=== PATIENT | female | born 1990 | race Caucasian/White ===

== ENCOUNTER 2022-06-08 18:19 | Emergency (ER) | payer MEDICAID ==
[~2022-06-08] VITALS: Ht 170.2 cm; Wt 93.4 kg
--- NOTE | 2022-06-08 19:00 | NUR ---
[id number], dizziness and headache x 2 hours s/p hiking, bg 134 [employer]. , pt in bed 11, no cp/sob. vss. pending er provider todd
[2022-06-08] MEDS ORDERED: ONDANSETRON HCL/PF 4 MG/2 ML VIAL IVP ONE (19:30)
[2022-06-08] MEDS ORDERED: SUMATRIPTAN SUCCINATE 6 MG/0.5 ML VIAL SQ ONE ×2 (19:30→19:39)
[2022-06-08] MEDS ORDERED: IV NS 0.9% 1,000 ML BAG IV ONE (19:30)
[2022-06-08] MEDS ORDERED: diphenhydrAMINE HCL 50 MG/ML VIAL IV ONE (19:30)
[2022-06-08] MEDS ORDERED: diphenhydrAMINE HCL 50 MG/ML VIAL ONE (19:39)
[2022-06-08] MEDS ORDERED: ONDANSETRON HCL/PF 4 MG/2 ML VIAL ONE (19:39)
[2022-06-08 19:55] LABS: BASOPHILS % (AUTO) 0.2 % (0.0-2.0); EOSINOPHILS % (AUTO) 0.3 % (0.0-6.0); HEMATOCRIT 42 % (33-45); HEMOGLOBIN 14.2 g/dL (11.5-14.8); LYMPHOCYTES # (AUTO) 0.8 K/uL (0.8-4.8); LYMPHOCYTES % (AUTO) 8.9 % (20.0-44.0); MEAN CORPUSCULAR HGB CONC 34 g/dl (31.0-36.0); MEAN CORPUSCULAR VOLUME 86 fL (82-100); MONOCYTES # (AUTO) 0.6 K/uL (0.1-1.30); MONOCYTES % (AUTO) 6.6 % (2.0-12.0); NEUTROPHILS # (AUTO) 7.7 K/uL (1.8-8.9); PLATELET COUNT (AUTO) 297 K/uL (150-450); RED BLOOD CELL COUNT(AUTO) 4.92 MIL/uL (4.0-5.2); WHITE BLOOD COUNT (AUTO) 9.2 K/uL (4.3-11.0)
[2022-06-08 20:28] LABS: CALCIUM, SERUM 9.4 mg/dL (8.5-10.1); CREATININE 0.9 mg/dL (0.6-1.3); POTASSIUM 3.9 mmol/L (3.5-5.1)
[2022-06-08 20:31] LABS: ALBUMIN 4.4 g/dL (3.4-5.0); BILIRUBIN,DIRECT 0.2 mg/dL (0.0-0.2); BILIRUBIN,TOTAL 0.5 mg/dL (0.2-1.0); TOTAL PROTEIN, SERUM 7.9 g/dL (6.4-8.2)
[2022-06-08] MEDS ORDERED: SUMA50TA PO (20:59)
--- NOTE | 2022-06-08 21:07 | NUR ---
Patient discharged to home in stable condition. Written and verbal after care instructions given. Patient verbalizes understanding of instruction. IV removed. Catheter intact and site benign. Pressure and 4x4 applied to site. No bleeding noted.
[2022-06-08 21:22] VITALS: BP 127/80
== END 2022-06-08 21:23 | disposition home or self-care (01) ==
LOC: ER 18:21
DX: G43.909 Migraine, unspecified, not intractable, without status migrainosus (principal)
CPT/HCPCS: 99285; 96374; 70450; 96361; 96375; 96372; 85025; 80048; 80076; 84703; 85652; 36415; J1200; J3030; J2405

== ENCOUNTER 2023-03-27 12:35 | Emergency (ER) | payer MEDICAID ==
[~2023-03-27] VITALS: Ht 167.6 cm; Wt 90.7 kg
[~2023-03-27 12:35] MED LIST: SUMA50TA PO
[2023-03-27] MEDS ORDERED: LIDOCAINE 1% INJ 50 ML MDV IJ ONE (13:18)
[2023-03-27] MEDS ORDERED: TDAP [DIPH/PERTUSSIS/TET] 0.5 ML VIAL IM ONE ×2 (13:20→13:30)
[2023-03-27] MEDS ORDERED: LIDOCAINE HCL/PF 1% 30 ML SDV ONE (13:20)
[2023-03-27] MEDS ORDERED: LIDOCAINE HCL/PF 1% 30 ML VIAL TP ONE (13:30)
[2023-03-27] MEDS ORDERED: HYDR-4209 PO (14:11)
[2023-03-27 15:21] VITALS: BP 127/78; TEMP 98.4; O2SAT 98
== END 2023-03-27 15:21 | disposition home or self-care (01) ==
LOC: ER 12:39
DX: S61.011A Laceration without foreign body of right thumb without damage to nail, initial encounter (principal); Z79.899 Other long term (current) drug therapy; Z60.2 Problems related to living alone; V89.2XXA Person injured in unspecified motor-vehicle accident, traffic, initial encounter; Y93.89 Activity, other specified; Y92.89 Other specified places as the place of occurrence of the external cause; Y99.8 Other external cause status
CPT/HCPCS: 12002; 73130; 90471; 90715; 99283; J3490